=== PATIENT | female | born 1960 | race Caucasian/White ===

== ENCOUNTER → 2016-08-07 | Outpatient (CLI) | payer OTHER ==
[~2016-08-07] MED LIST: BIOT25004 PO; CYCL-259 PO; ESTR1TAB15 PO; ESTRADIOL PO; HYDR-3307 PO; MAGNESIUM SULFATE; MEDR2.5T30 PO; MEDROXYPROGESTERONE PO; METH4TAB2 PO; PARO30TA3 PO; QVAR; SIMV20TA3 PO; SUMA100T4 PO; TESSALON PERLE; VITAMIN B2 PO
[2016-08-07 10:34] LABS: BLOOD UREA NITROGEN 13 mg/dL (7-18)
[2016-08-07 10:36] LABS: ASPARTATE AMINO TRANSFERASE 30 U/L (15-37)
== END | disposition home or self-care (01) ==
LOC: STAR 09:09
PROVIDERS: ATTEND Neurological Surgery
DX: M54.12 Radiculopathy, cervical region (principal); R79.1 Abnormal coagulation profile
CPT/HCPCS: 36415; 80053; 81003; 85025; 85610; 85730

== ENCOUNTER 2016-08-14 05:53 | Inpatient (IN) | payer OTHER ==
[2016-08-07 09:35] VITALS: BP 116/82
[~2016-08-14] VITALS: Ht 170.2 cm; Wt 91.0 kg
[2016-08-14] MEDS ORDERED: MAGN400T36 PO (06:40)
[2016-08-14] MEDS ORDERED: BIOT1CAP3 PO (06:40)
[2016-08-14] MEDS ORDERED: LACTATED RINGERS 1,000 ML IV SCH (06:41)
[2016-08-14] MEDS ORDERED: BUPIVACAINE/PF-EPI 0.25% 1:200K ONE (06:47)
[2016-08-14] MEDS ORDERED: LIDOCAINE 0.5%-EPI 1:200K, 50ML ONE (06:47)
[2016-08-14] MEDS ORDERED: THROMBIN 5,000 UNIT VIAL TP ONE (06:47)
[2016-08-14] MEDS ORDERED: VANCOMYCIN 1,000 MG ONE (06:47)
[2016-08-14] MEDS ORDERED: BACITRACIN 50,000 UNIT ONE (06:47)
[2016-08-14] MEDS ORDERED: BUPIVACAINE/PF-EPI 0.5% 1:200K ONE (06:52)
[2016-08-14] MEDS ORDERED: LIDOCAINE 1%, 2ML SQ PRN (07:00)
[2016-08-14] MEDS ORDERED: FENTANYL PF 250 MCG/5ML ONE (07:11)
[2016-08-14] MEDS ORDERED: REMIFENTANIL 2 MG ONE ×2 (07:11→09:53)
[2016-08-14] MEDS ORDERED: MIDAZOLAM 1 MG/ML, 2ML ONE (07:11)
[2016-08-14] MEDS ORDERED: HYDROmorphone 2 MG/ML, 1ML ONE (09:52)
[2016-08-14] MEDS ORDERED: BUPIVACAINE/PF 0.5% ONE (10:22)
[2016-08-14] MEDS ORDERED: FENTANYL PF 100 MCG/2ML ONE (11:39)
[2016-08-14] MEDS ORDERED: HYDROmorphone PCA 30 MG/30 ML ONE (11:39)
[2016-08-14] MEDS ORDERED: OXYcodone/APAP 10/325MG TABLET PO PRN (12:00)
[2016-08-14] MEDS ORDERED: MAGNESIUM HYDROXIDE 8%, 30ML UDC PO PRN (12:00)
[2016-08-14] MEDS ORDERED: BISACODYL 10 MG SUPP PR PRN (12:00)
[2016-08-14] MEDS ORDERED: DIAZEPAM 5 MG/ML, 2ML IVPush PRN (12:00)
[2016-08-14] MEDS: NS + 20MEQ KCL 1,000 ML IV SCH ×2 (12:00→20:38)
[2016-08-14] MEDS ORDERED: HYDROmorphone PCA 30 MG/30 ML IV PRN (12:00)
[2016-08-14] MEDS ORDERED: ONDANSETRON 2MG/ML, 2ML IVPush PRN ×2 (12:00→12:30)
[2016-08-14] MEDS ORDERED: METHOCARBAMOL 750 MG TABLET PO PRN (12:00)
[2016-08-14] MEDS ORDERED: morphine SULFATE 10 MG/ML, 1ML IVPush PRN (12:00)
[2016-08-14] MEDS: FENTANYL PF 100 MCG/2ML IV PRN ×2 (12:00→12:10)
[2016-08-14] MEDS ORDERED: PROMETHAZINE 25 MG/ML, 1ML IM PRN (12:00)
[2016-08-14] MEDS ORDERED: SUMATRIPTAN 50 MG TABLET PO PRN (12:00)
[2016-08-14] MEDS ORDERED: DIAZEPAM 5 MG TABLET PO PRN (12:00)
[2016-08-14] MEDS ORDERED: PHARMACY MAY ADJ FOR RENAL FX MC PRN (12:00)
[2016-08-14] MEDS ORDERED: HYDROmorphone 1 MG/ML, 1ML IV PRN (12:30)
[2016-08-14] MEDS ORDERED: FENTANYL PF 100 MCG/2ML IV PRN (12:30)
[2016-08-14] MEDS ORDERED: MEPERIDINE/PF 25MG/0.5ML IVPush PRN (12:30)
[2016-08-14] MEDS ORDERED: PROMETHAZINE 25 MG/ML, 1ML IV PRN (12:30)
[2016-08-14 13:41] VITALS: BP 96/64
[2016-08-14] MEDS ORDERED: PROPOFOL 10 MG/ML, 20ML ONE (16:29)
[2016-08-14] MEDS ORDERED: PHENYLEPHRINE 10 MG/ML ONE (16:29)
[2016-08-14] MEDS ORDERED: CEFAZOLIN 1,000 MG ONE ×2 (16:29)
[2016-08-14] MEDS ORDERED: METOCLOPRAMIDE 5 MG/ML, 2ML ONE (16:29)
[2016-08-14] MEDS ORDERED: ONDANSETRON 2MG/ML, 2ML ONE (16:29)
[2016-08-14] MEDS ORDERED: SUCCINYLCHOLINE 20 MG/ML, 10ML ONE (16:29)
[2016-08-14] MEDS ORDERED: DEXAMETHASONE 4 MG/ML, 1ML ONE (16:29)
[2016-08-14] MEDS ORDERED: PROPOFOL 10 MG/ML, 50ML ONE (16:29)
[2016-08-14] MEDS: CEFAZOLIN PMX 1GM/50ML 50 ML IVPB SCH (18:39)
[2016-08-14 18:59] VITALS: BP 100/66
[2016-08-14] MEDS: SODIUM CHLORIDE FLUSH 10ML SYR IVF SCH (20:38)
[2016-08-14] MEDS: CYCLOBENZAPRINE 10 MG TABLET PO PRN (20:38)
[2016-08-14] MEDS: MAGNESIUM OXIDE 400 MG TABLET PO SCH (20:39)
[2016-08-14] MEDS: SIMVASTATIN 20 MG TABLET PO SCH (20:39)
[2016-08-14] MEDS: OMEPRAZOLE 10 MG CAPSULE.DR PO SCH ×2 (21:00→22:30)
[2016-08-14] MEDS: PAROXETINE 10 MG TABLET PO SCH (22:57)
[2016-08-15 00:19] VITALS: BP 99/56
[2016-08-15] MEDS: CEFAZOLIN PMX 1GM/50ML 50 ML IVPB SCH (03:08)
[2016-08-15 04:53] VITALS: BP 93/54
[2016-08-15] MEDS: CYCLOBENZAPRINE 10 MG TABLET PO PRN ×3 (04:57→21:25)
[2016-08-15 05:50] LABS: HEMOGLOBIN 11.3 g/dL (11.7-16.4)
[2016-08-15 06:17] LABS: BLOOD UREA NITROGEN 8 mg/dL (7-18)
[2016-08-15 07:16] VITALS: BP 96/55
[2016-08-15] MEDS: NS + 20MEQ KCL 1,000 ML IV SCH ×2 (08:00→18:00)
[2016-08-15] MEDS: HYDROcodone/APAP 10/325 MG TABLET PO PRN (08:53)
[2016-08-15] MEDS ORDERED: PAROXETINE 10 MG TABLET PO SCH (09:00)
[2016-08-15] MEDS: SODIUM CHLORIDE FLUSH 10ML SYR IVF SCH ×2 (09:00→20:51)
[2016-08-15] MEDS: SENNA/DOCUSATE TABLET PO SCH (09:00)
[2016-08-15 13:15] VITALS: BP 97/63
[2016-08-15 20:46] VITALS: BP 103/68
[2016-08-15] MEDS: MEDROXYPROGESTERONE ACETATE 2.5 MG TABLET PO SCH (20:50)
[2016-08-15] MEDS: SIMVASTATIN 20 MG TABLET PO SCH (20:50)
[2016-08-15] MEDS: PAROXETINE 10 MG TABLET PO SCH (20:50)
[2016-08-15] MEDS: MAGNESIUM OXIDE 400 MG TABLET PO SCH (20:51)
[2016-08-15] MEDS: ESTRADIOL 1 MG TABLET PO SCH (20:51)
[2016-08-16] MEDS: NS + 20MEQ KCL 1,000 ML IV SCH ×2 (04:16→09:12)
[2016-08-16 05:20] VITALS: BP 116/60
[2016-08-16] MEDS: HYDROcodone/APAP 10/325 MG TABLET PO PRN ×5 (05:23→22:04)
[2016-08-16] MEDS: CYCLOBENZAPRINE 10 MG TABLET PO PRN ×3 (05:23→22:04)
[2016-08-16 05:46] LABS: HEMOGLOBIN 11.1 g/dL (11.7-16.4)
[2016-08-16 05:58] LABS: BLOOD UREA NITROGEN 9 mg/dL (7-18)
[2016-08-16] MEDS ORDERED: CYCL-259 PO (08:17)
[2016-08-16] MEDS ORDERED: HYDR-3307 PO (08:17)
[2016-08-16 09:00] VITALS: BP 110/68
[2016-08-16] MEDS: SODIUM CHLORIDE FLUSH 10ML SYR IVF SCH ×2 (09:07→22:04)
[2016-08-16] MEDS: PAROXETINE 10 MG TABLET PO SCH (09:09)
[2016-08-16] MEDS: ESTRADIOL 1 MG TABLET PO SCH (09:09)
[2016-08-16] MEDS: SENNA/DOCUSATE TABLET PO SCH (09:09)
[2016-08-16] MEDS: MEDROXYPROGESTERONE ACETATE 2.5 MG TABLET PO SCH (09:10)
[2016-08-16 15:29] VITALS: BP 107/67
[2016-08-16 19:37] VITALS: BP 90/52
[2016-08-16] MEDS: SIMVASTATIN 20 MG TABLET PO SCH (22:04)
[2016-08-16] MEDS: MAGNESIUM OXIDE 400 MG TABLET PO SCH (22:04)
[2016-08-17] MEDS: HYDROcodone/APAP 10/325 MG TABLET PO PRN ×4 (02:02→14:10)
[2016-08-17 02:55] VITALS: BP 89/50
[2016-08-17 05:37] LABS: BLOOD UREA NITROGEN 6 mg/dL (7-18)
[2016-08-17] MEDS: CYCLOBENZAPRINE 10 MG TABLET PO PRN ×2 (05:55→14:10)
[2016-08-17 07:41] VITALS: BP 91/54
[2016-08-17] MEDS: SODIUM CHLORIDE FLUSH 10ML SYR IVF SCH (08:23)
[2016-08-17] MEDS: SENNA/DOCUSATE TABLET PO SCH (08:24)
[2016-08-17] MEDS: MEDROXYPROGESTERONE ACETATE 2.5 MG TABLET PO SCH (08:46)
[2016-08-17] MEDS: ESTRADIOL 1 MG TABLET PO SCH (08:46)
[2016-08-17] MEDS: NS + 20MEQ KCL 1,000 ML IV SCH ×2 (08:46)
[2016-08-17] MEDS: PAROXETINE 10 MG TABLET PO SCH (08:46)
[2016-08-17 14:25] VITALS: BP 90/58
[2016-08-17] MEDS ORDERED: DOCU100C PO (15:37)
== END 2016-08-17 15:52 | disposition home or self-care (01) | DRG 518 ==
LOC: INTOOBSV 05:53 → ORIP 05:53 → 4NOR 12:33 → OBSVTOIN 08-15 11:18 → DCLOUNGE 08-17 15:31
PROVIDERS: ADMIT Neurological Surgery; ATTEND Neurological Surgery
PROC: 01N80ZZ Release Thoracic Nerve, Open Approach (ICD-10-PCS; 2016-08-14)
PROC: 01N40ZZ Release Ulnar Nerve, Open Approach (ICD-10-PCS; 2016-08-14)
PROC: 0RU Upper Joints, Supplement (ICD-10-PCS; principal; 2016-08-14 07:30)
PROC: 01N10ZZ Release Cervical Nerve, Open Approach (ICD-10-PCS; 2016-08-14 07:30)
DX: M48.03 Spinal stenosis, cervicothoracic region (principal); G56.22 Lesion of ulnar nerve, left upper limb; M43.13 Spondylolisthesis, cervicothoracic region; Z88.1 Allergy status to other antibiotic agents; Z88.8 Allergy status to other drugs, medicaments and biological substances
CPT/HCPCS: 36415; 72040; 80048; 85025; 86850; 86900; 95938; 95941; C1713; G0378; J0690; J1100; J1170; J2250; J2405; J2704; J3010; J3370; J3480; J3490; J0330; J2370; J2765; J7120

== ENCOUNTER → 2016-09-18 | Outpatient (CLI) | payer OTHER ==
[~2016-09-18] MED LIST changes: +BIOT1CAP3 PO; +DOCU100C PO; +MAGN400T36 PO
== END | disposition home or self-care (01) ==
LOC: CFH 07:36
PROVIDERS: ATTEND Obstetrics & Gynecology Gynecology
DX: Z12.31 Encounter for screening mammogram for malignant neoplasm of breast (principal); N88.8 Other specified noninflammatory disorders of cervix uteri; G89.29 Other chronic pain; R10.2 Pelvic and perineal pain; M88.9 Osteitis deformans of unspecified bone
CPT/HCPCS: 76830; G0202

== ENCOUNTER → 2017-05-16 | Outpatient (CLI) | payer OTHER ==
[~2017-05-16] MED LIST changes: -BIOT25004 PO; +BIOT25005 PO; +DOCU-180 PO; -DOCU100C PO; +GADOBUTROL 7.5 MMOL/7.5 ML PFS ONE
== END | disposition home or self-care (01) ==
LOC: CFH 12:35
PROVIDERS: ATTEND Nurse Practitioner Primary Care
DX: G43.901 Migraine, unspecified, not intractable, with status migrainosus (principal); J32.0 Chronic maxillary sinusitis
CPT/HCPCS: 70553; A9585

== ENCOUNTER 2018-02-05 19:44 | Inpatient (IN) | payer OTHER ==
[~2018-02-05] VITALS: Ht 170.2 cm; Wt 78.2 kg
[~2018-02-05 19:44] MED LIST changes: -GADOBUTROL 7.5 MMOL/7.5 ML PFS ONE
[2018-02-05] MEDS ORDERED: SODIUM CHLORIDE FLUSH 10ML SYR IVF ONE (20:30)
[2018-02-05] MEDS ORDERED: SODIUM CHLORIDE 0.9% 1,000ML IVBOLUS ONE ×4 (20:30→23:30)
[2018-02-05] MEDS ORDERED: OMEP-110 PO (20:31)
[2018-02-05 20:34] LABS: MEAN CORPUSCULAR HEMOGLOBIN 29.2 pg (27.0-34.8); MEAN CORPUSCULAR VOLUME 85.9 fL (80-100); MEAN PLATELET VOLUME 8.8 fL (7.4-10.4); PLATELET COUNT 204 x10^3/uL (130-400); RED CELL DISTRIBUTION WIDTH 15.6 % (9.6-15.2)
[2018-02-05 20:43] LABS: ALANINE AMINOTRANSFERASE 23 U/L (12-78); ALBUMIN 3.2 g/dL (3.4-5.0); ANION GAP 15 mmol/L (5-15); CALCIUM 8.4 mg/dL (8.5-10.1); CHLORIDE 98 mmol/L (98-107); CREATININE 3.81 mg/dL (0.55-1.02)
[2018-02-05] MEDS ORDERED: LOPERAMIDE 2 MG CAPSULE ONE (20:43)
[2018-02-05] MEDS ORDERED: ONDANSETRON ODT 4 MG ONE (20:44)
[2018-02-05 20:48] LABS: ALKALINE PHOSPHATASE 40 U/L (45-117); BILIRUBIN,TOTAL 0.8 mg/dL (0.2-1.0); TOTAL PROTEIN 6.9 g/dL (6.4-8.2)
[2018-02-05] MEDS ORDERED: ONDANSETRON ODT 4 MG PO ONE (21:00)
[2018-02-05] MEDS ORDERED: LOPERAMIDE 2 MG CAPSULE PO ONE (21:00)
[2018-02-05] MEDS ORDERED: PROCHLORPERAZINE 5 MG/ML, 2ML ONE (21:16)
[2018-02-05 21:20] LABS: MD YES
[2018-02-05 21:48] LABS: METAMYELOCYTES# (MANUAL) 0.11 x10^3/uL (0-0); METAMYELOCYTES% (MANUAL) 4 % (0-1)
[2018-02-05 21:50] LABS: BAND#(MANUAL) 0.84 x10^3/uL; BANDS%(MANUAL) 31 % (0-7); LYMPH#(MANUAL) 0.41 x10^3/uL (1-3.4); LYMPHS% (MANUAL) 15 % (22-44); MONOS#(MANUAL) 0.24 x10^3/uL (0.3-2.7); MONOS% (MANUAL) 9 % (2-9); SEG#(MANUAL) 1.11 x10^3/uL (1.8-6.8); SEGS% (MANUAL) 41 % (42-75)
[2018-02-05 21:51] LABS: <PLATELET ESTIMATE> ADEQUATE; <PLT MORPHOLOGY> NORMAL PLT MORPH; <RBC MORPHOLOGY> NORMAL
[2018-02-05 22:26] LABS: CLOSTRIDIUM DIFFICILE ANTIGEN NEGATIVE; CLOSTRIDIUM DIFFICILE TOXIN NEGATIVE (Negative)
[2018-02-05] MEDS: METRONIDAZOLE PMX 500MG/100ML 100 ML IVPB ONE (22:30)
[2018-02-05] MEDS: CIPROFLOXACIN/PMX 400MG/200ML 100 ML IVPB ONE ×2 (22:30→22:58)
[2018-02-05] MEDS ORDERED: METRONIDAZOLE PMX 500MG/100ML 100 ML ONE (22:44)
[2018-02-05] MEDS ORDERED: CIPROFLOXACIN/PMX 400MG/200ML 200 ML ONE (22:44)
[2018-02-05] MEDS: CIPROFLOXACIN/PMX 400MG/200ML 200 ML IV SCH (23:00)
[2018-02-05] MEDS: METRONIDAZOLE PMX 500MG/100ML 100 ML IV SCH (23:00)
[2018-02-05] MEDS ORDERED: morphine SULFATE 10 MG/ML, 1ML IVPush PRN (23:30)
[2018-02-05] MEDS ORDERED: BUTALB/APAP/CAFFEINE 50MG/325MG/40MG PO ONE (23:30)
[2018-02-05] MEDS ORDERED: ACETAMINOPHEN 325 MG TABLET PO PRN (23:30)
[2018-02-06] MEDS ORDERED: BUTALBIT/ACETAMIN/CAFF/CODEINE CAPSULE ONE (00:31)
[2018-02-06] MEDS ORDERED: HEPARIN 5,000 UNITS/ML, 1ML ONE (00:31)
[2018-02-06 00:35] LABS: ALBUMIN 2.4 g/dL (3.4-5.0); ANION GAP 10 mmol/L (5-15); CHLORIDE 106 mmol/L (98-107); CREATININE 3.15 mg/dL (0.55-1.02)
[2018-02-06] MEDS: METRONIDAZOLE PMX 500MG/100ML 100 ML IVPB ONE (00:42)
[2018-02-06] MEDS: HEPARIN 5,000 UNITS/ML, 1ML SQ SCH ×3 (00:43→20:30)
[2018-02-06] MEDS ORDERED: DOXYCYCLINE 100 MG in DEXTROSE 5% 250 ML IV STA (02:00)
[2018-02-06] MEDS ORDERED: LOPERAMIDE 2 MG CAPSULE ONE (02:21)
[2018-02-06] MEDS: NOREPINEPHRINE 4 MG in SODIUM CHLORIDE 0.9% 246 ML IV PRN ×10 (02:29→09:35)
[2018-02-06] MEDS ORDERED: LOPERAMIDE 2 MG CAPSULE PO ONE (02:30)
[2018-02-06 05:31] LABS: ALBUMIN 2.5 g/dL (3.4-5.0); ANION GAP 10 mmol/L (5-15); CALCIUM 7.6 mg/dL (8.5-10.1); CHLORIDE 106 mmol/L (98-107)
[2018-02-06 05:35] LABS: ALANINE AMINOTRANSFERASE 19 U/L (12-78); ALKALINE PHOSPHATASE 34 U/L (45-117); BILIRUBIN,TOTAL 0.6 mg/dL (0.2-1.0); CREATININE 2.56 mg/dL (0.55-1.02); TOTAL PROTEIN 5.4 g/dL (6.4-8.2)
[2018-02-06 05:36] LABS: MEAN CORPUSCULAR HEMOGLOBIN 29.8 pg (27.0-34.8); MEAN CORPUSCULAR HGB CONC 34.6 g/dL (32.4-35.8); MEAN PLATELET VOLUME 8.6 fL (7.4-10.4); PLATELET COUNT 178 x10^3/uL (130-400); RED BLOOD COUNT 3.75 x10^6/uL (3.82-5.3); RED CELL DISTRIBUTION WIDTH 16.1 % (9.6-15.2)
[2018-02-06 06:24] LABS: MD YES
[2018-02-06 06:33] LABS: BAND#(MANUAL) 1.22 x10^3/uL; BANDS%(MANUAL) 51 % (0-7); LYMPHS% (MANUAL) 25 % (22-44); MONOS#(MANUAL) 0.19 x10^3/uL (0.3-2.7); MONOS% (MANUAL) 8 % (2-9); SEG#(MANUAL) 0.38 x10^3/uL (1.8-6.8); SEGS% (MANUAL) 16 % (42-75)
[2018-02-06 06:38] LABS: ANISOCYTOSIS 1+
[2018-02-06 06:39] LABS: <PLATELET ESTIMATE> ADEQUATE; <PLT MORPHOLOGY> NORMAL PLT MORPH
[2018-02-06 06:41] LABS: OVALOCYTES 1+
[2018-02-06 08:25] LABS: CRYPTOSPORIDIUM ANTIGEN Negative (Negative)
[2018-02-06] MEDS: SODIUM CHLORIDE 0.9% 1,000 ML IV SCH ×4 (08:34→23:00)
[2018-02-06 10:00] VITALS: BP 103/69
[2018-02-06] MEDS ORDERED: POTASSIUM CHLORIDE 20 MEQ TAB.ER.PRT PO ONE (10:00)
[2018-02-06] MEDS ORDERED: MAGNESIUM SULFATE PMX 4GM/100M 100 ML IV ONE (10:00)
[2018-02-06 10:55] LABS: CULTURE INDICATED? NO; MICROSCOPIC AUTO
[2018-02-06] MEDS: CIPROFLOXACIN/PMX 400MG/200ML 200 ML IV SCH ×2 (10:56→23:24)
[2018-02-06 10:58] LABS: CREATININE,URINE RANDOM 81.9 mg/dL
[2018-02-06] MEDS ORDERED: MAGNESIUM HYDROXIDE 8%, 30ML UDC PO PRN (12:00)
[2018-02-06] MEDS: ONDANSETRON ODT 4 MG PO PRN (12:02)
[2018-02-06] MEDS: OMEPRAZOLE 20 MG CAPSULE.DR PO SCH (12:11)
[2018-02-06] MEDS: METRONIDAZOLE PMX 500MG/100ML 100 ML IV SCH ×2 (13:11→20:49)
[2018-02-06] MEDS: SUMATRIPTAN 50 MG TABLET PO PRN ×2 (14:18→17:34)
[2018-02-06 19:47] VITALS: BP 95/60
[2018-02-06] MEDS: TEMAZEPAM 15 MG CAPSULE PO PRN (21:09)
[2018-02-06 22:05] VITALS: BP 111/67
[2018-02-07] MEDS: SODIUM CHLORIDE 0.9% 1,000 ML IV SCH ×3 (02:42→18:20)
[2018-02-07] MEDS: METRONIDAZOLE PMX 500MG/100ML 100 ML IV SCH ×3 (04:20→20:56)
[2018-02-07] MEDS: HEPARIN 5,000 UNITS/ML, 1ML SQ SCH ×3 (04:20→20:56)
[2018-02-07 08:10] VITALS: BP 97/68
[2018-02-07] MEDS: OMEPRAZOLE 20 MG CAPSULE.DR PO SCH (08:10)
[2018-02-07 09:46] VITALS: BP 93/61
[2018-02-07] MEDS: CIPROFLOXACIN/PMX 400MG/200ML 200 ML IV SCH ×2 (11:00→23:01)
[2018-02-07] MEDS: ONDANSETRON ODT 4 MG PO PRN (12:33)
[2018-02-07 13:50] VITALS: BP 106/69
[2018-02-07] MEDS: TEMAZEPAM 15 MG CAPSULE PO PRN (20:56)
[2018-02-07 21:16] VITALS: BP 98/61
[2018-02-08] MEDS: SODIUM CHLORIDE 0.9% 1,000 ML IV SCH ×3 (01:42→17:23)
[2018-02-08 01:43] VITALS: BP 107/74
[2018-02-08] MEDS: HEPARIN 5,000 UNITS/ML, 1ML SQ SCH ×3 (04:12→19:54)
[2018-02-08] MEDS: METRONIDAZOLE PMX 500MG/100ML 100 ML IV SCH ×3 (04:13→19:54)
[2018-02-08 04:59] LABS: MEAN CORPUSCULAR HEMOGLOBIN 30.1 pg (27.0-34.8); MEAN CORPUSCULAR HGB CONC 34.2 g/dL (32.4-35.8); MEAN PLATELET VOLUME 8.4 fL (7.4-10.4); PLATELET COUNT 169 x10^3/uL (130-400); RED BLOOD COUNT 3.42 x10^6/uL (3.82-5.3); RED CELL DISTRIBUTION WIDTH 15.5 % (9.6-15.2)
[2018-02-08 05:05] LABS: CHLORIDE 115 mmol/L (98-107)
[2018-02-08 05:17] LABS: ANION GAP 11 mmol/L (5-15); CALCIUM 8.2 mg/dL (8.5-10.1); CREATININE 0.81 mg/dL (0.55-1.02)
[2018-02-08 05:46] LABS: BASOPHILS # (AUTO) 0.02 x10^3/uL (0-0.1); BASOPHILS % (AUTO) 0 % (0-1); EOSINOPHILS # (AUTO) 0.16 x10^3/uL (0-0.4); EOSINOPHILS % (AUTO) 3 % (1-7); LYMPHOCYTES # (AUTO) 1.34 x10^3/uL (1-3.4); LYMPHOCYTES % (AUTO) 26 % (22-44); MD SCAN; MONOCYTES # (AUTO) 0.36 x10^3/uL (0.2-0.8); MONOCYTES % (AUTO) 7 % (2-9); NEUTROPHILS # (AUTO) 3.27 x10^3/uL (1.8-6.8); NEUTROPHILS % (AUTO) 64 % (42-75)
[2018-02-08] MEDS ORDERED: POTASSIUM CHLORIDE 20 MEQ TAB.ER.PRT PO ONE (07:30)
[2018-02-08] MEDS: OMEPRAZOLE 20 MG CAPSULE.DR PO SCH (08:16)
[2018-02-08] MEDS: SUMATRIPTAN 50 MG TABLET PO PRN ×2 (08:17→12:05)
[2018-02-08 08:29] VITALS: BP 107/74
[2018-02-08] MEDS: CIPROFLOXACIN/PMX 400MG/200ML 200 ML IV SCH ×2 (11:02→23:00)
[2018-02-08 13:55] VITALS: BP 127/86
[2018-02-08] MEDS: PAROXETINE 10 MG TABLET PO SCH (15:33)
[2018-02-08 19:34] VITALS: BP 113/76
[2018-02-08] MEDS: TEMAZEPAM 15 MG CAPSULE PO PRN (19:54)
[2018-02-08] MEDS ORDERED: SIMVASTATIN 20 MG TABLET PO SCH (21:00)
[2018-02-09 01:46] VITALS: BP 92/59
[2018-02-09] MEDS: HEPARIN 5,000 UNITS/ML, 1ML SQ SCH (04:11)
[2018-02-09] MEDS: SODIUM CHLORIDE 0.9% 1,000 ML IV SCH (04:12)
[2018-02-09] MEDS: METRONIDAZOLE PMX 500MG/100ML 100 ML IV SCH (04:12)
[2018-02-09 06:31] VITALS: BP 103/69
[2018-02-09] MEDS: PAROXETINE 10 MG TABLET PO SCH (09:09)
[2018-02-09] MEDS: OMEPRAZOLE 20 MG CAPSULE.DR PO SCH (09:09)
[2018-02-09] MEDS ORDERED: CIPR500T87 PO (10:04)
[2018-02-09] MEDS ORDERED: METR500T PO (10:04)
== END 2018-02-09 11:03 | disposition home or self-care (01) | DRG 871 ==
LOC: ED 22:10 → EDIP 22:35 → CCU 02-06 08:15 → 3NE 02-06 21:53
PROVIDERS: ADMIT Family Medicine; ATTEND Family Medicine
PROC: 02HV33Z Insertion of Infusion Device into Superior Vena Cava, Percutaneous Approach (ICD-10-PCS; principal; 2018-02-06)
PROC: B548ZZA Ultrasonography of Superior Vena Cava, Guidance (ICD-10-PCS; 2018-02-06)
DX: A41.9 Sepsis, unspecified organism (principal); N17.0 Acute kidney failure with tubular necrosis; E44.1 Mild protein-calorie malnutrition; E87.1 Hypo-osmolality and hyponatremia; K52.9 Noninfective gastroenteritis and colitis, unspecified; E78.00 Pure hypercholesterolemia, unspecified; E78.5 Hyperlipidemia, unspecified; E86.0 Dehydration; F32.9 Major depressive disorder, single episode, unspecified; K21.9 Gastro-esophageal reflux disease without esophagitis; R65.20 Severe sepsis without septic shock; Z88.8 Allergy status to other drugs, medicaments and biological substances; Z68.27 Body mass index [BMI] 27.0-27.9, adult; D72.819 Decreased white blood cell count, unspecified
CPT/HCPCS: 36415; 36556; 71045; 80048; 80053; 80069; 81001; 82436; 82570; 83605; 83735; 84133; 84300; 84703; 85025; 87040; 87046; 87077; 87081; 87177; 87186; 87209; 87324; 87328; 87329; 87427; 89055; 96365; 96366; 96375; G0378; J0744; J1644; J7060; Q0162; J3475; J7030; J7050

== ENCOUNTER 2019-10-05 15:14 | Emergency (ER) | payer BC, MEDICARE ==
[~2019-10-05] VITALS: Ht 170.2 cm; Wt 75.3 kg
[~2019-10-05 15:14] MED LIST changes: +CIPR500T87 PO; -HYDR-3307 PO; +HYDR-36 PO; +METR500T PO; +OMEP-110 PO; +SIMV20TA19 PO; -SIMV20TA3 PO
--- NOTE | 2019-10-05 16:05 | NUR ---
THIS PT WAS AMBULATORY TO ROOM, DRESSED SELF IN GOWN. NO COMPLAINTS AT THIS TIME. VSS. WILL CONTINUE TO MONITOR.
[2019-10-05 17:05] LABS: BASOPHILS # (AUTO) 0.08 x10^3/uL (0-0.1); BASOPHILS % (AUTO) 1 % (0-1); EOSINOPHILS # (AUTO) 0.17 x10^3/uL (0-0.4); EOSINOPHILS % (AUTO) 3 % (1-7); LYMPHOCYTES # (AUTO) 1.51 x10^3/uL (1-3.4); LYMPHOCYTES % (AUTO) 22 % (22-44); MD NO; MEAN CORPUSCULAR HEMOGLOBIN 31.1 pg (27.0-34.8); MEAN CORPUSCULAR HGB CONC 33.3 g/dL (32.4-35.8); MEAN CORPUSCULAR VOLUME 93.3 fL (80-100); MEAN PLATELET VOLUME 8.4 fL (7.4-10.4); MONOCYTES # (AUTO) 0.42 x10^3/uL (0.2-0.8); MONOCYTES % (AUTO) 6 % (2-9); NEUTROPHILS # (AUTO) 4.75 x10^3/uL (1.8-6.8); NEUTROPHILS % (AUTO) 69 % (42-75); PLATELET COUNT 235 x10^3/uL (130-400); RED BLOOD COUNT 4.53 x10^6/uL (3.82-5.3); RED CELL DISTRIBUTION WIDTH 13.1 % (9.6-15.2)
[2019-10-05 17:14] LABS: ANION GAP 4 mmol/L (5-15); CALCIUM 9.4 mg/dL (8.5-10.1); CHLORIDE 108 mmol/L (98-107)
[2019-10-05 17:17] LABS: CREATININE 0.86 mg/dL (0.55-1.02)
--- NOTE | 2019-10-05 17:46 | NUR ---
PT SITTING IN BED, ON PHONE, NO SIGNS OF DISTRESS. WILL CONTINUE TO MONITOR.
--- NOTE | 2019-10-05 18:04 | NUR ---
PT TO IMAGING.
[2019-10-05] MEDS ORDERED: OMNIPAQUE 350 MG/ML, 100ML BOTTLE ONE (18:39)
--- NOTE | 2019-10-05 18:49 | NUR ---
REPORT FROM WANDA GARCIA.
[2019-10-05 18:50] VITALS: BP 119/79
[2019-10-05] MEDS ORDERED: LEVO25TA4 PO (18:52)
[2019-10-05] MEDS ORDERED: PARO30TA3 PO (18:52)
[2019-10-05] MEDS ORDERED: SIMV20TA19 PO (18:52)
[2019-10-05] MEDS ORDERED: ASPI81TA45 PO (18:52)
--- NOTE | 2019-10-05 18:56 | NUR ---
REPORT GIVEN TO JOSE NICK.
== END 2019-10-05 19:33 ==
LOC: ED 19:27
DX: R55 Syncope and collapse (principal); R42 Dizziness and giddiness; R13.0 Aphagia; R94.31 Abnormal electrocardiogram [ECG] [EKG]
CPT/HCPCS: 36415; 70450; 70496; 70498; 80048; 84443; 85025; 93005; 99285; Q9967

== ENCOUNTER 2019-11-18 07:09 | Outpatient (CLI) | payer MEDICARE ==
[~2019-11-18 07:09] MED LIST changes: +ASPI81TA45 PO; +HYDR-3246 PO; -HYDR-36 PO; +LEVO25TA4 PO
[2019-11-30] MEDS ORDERED: UBID10CA5 PO (12:39)
[2019-11-30] MEDS ORDERED: OMEP-110 PO (12:39)
[2019-11-30] MEDS ORDERED: CETI10CA PO (12:39)
[2019-11-30] MEDS ORDERED: TURM1POW PO (12:39)
[2019-11-30] MEDS ORDERED: LORA10CA PO (12:39)
[2019-11-30] MEDS ORDERED: BIOT1TAB3 PO (12:39)
== END 2019-11-18 23:59 | disposition home or self-care (01) ==
LOC: ROC 07:09
PROVIDERS: ATTEND Radiology Radiation Oncology
DX: C53.9 Malignant neoplasm of cervix uteri, unspecified (principal)
CPT/HCPCS: 99214; G0463

== ENCOUNTER → 2020-02-04 | Outpatient (CLI) | payer MEDICARE ==
[~2020-02-04] MED LIST changes: +BIOT1TAB3 PO; +CETI10CA PO; +LORA10CA PO; +TURM1POW PO; +UBID10CA5 PO
== END | disposition home or self-care (01) ==
LOC: ROC 11:04
PROVIDERS: ATTEND Radiology Radiation Oncology
DX: Z02.9 Encounter for administrative examinations, unspecified (principal)